=== PATIENT | female | born 1975 | race Two or more races ===

== ENCOUNTER 2020-12-04 14:29 | Inpatient (IN) | payer OTHER ==
[~2020-12-04] VITALS: Ht 160 cm; Wt 103.0 kg
[2020-12-04] MEDS ORDERED: IRON236 MG (14:56)
[2020-12-04] MEDS ORDERED: ESCITALOPRA5 MG/5 ML (14:57)
[2020-12-04] MEDS ORDERED: CARDIZEM30 MG (14:57)
== END 2020-12-07 16:48 | disposition home or self-care (01) | DRG 812 ==
LOC: ER 14:29 → SEC-K 12-05 22:40 → OB/GYN 12-06 15:17
PROVIDERS: ADMIT Obstetrics & Gynecology; ATTEND Obstetrics & Gynecology
PROC: 30233N1 Transfusion of Nonautologous Red Blood Cells into Peripheral Vein, Percutaneous Approach (ICD-10-PCS; principal; 2020-12-05)
DX: D64.9 Anemia, unspecified (principal); N93.9 Abnormal uterine and vaginal bleeding, unspecified

== ENCOUNTER 2020-12-08 11:17 | Emergency (ER) | payer OTHER ==
[~2020-12-08] VITALS: Ht 160 cm; Wt 103.0 kg
[~2020-12-08 11:17] MED LIST: CARDIZEM30 MG; ESCITALOPRA5 MG/5 ML; IRON236 MG
== END 2020-12-08 15:57 | disposition home or self-care (01) ==
LOC: ER 11:17
DX: R14.0 Abdominal distension (gaseous) (principal); Z03.818 Encounter for observation for suspected exposure to other biological agents ruled out

== ENCOUNTER 2021-07-13 09:00 | Inpatient (IN) | payer OTHER ==
[~2021-07-13] VITALS: Ht 160 cm; Wt 104.3 kg
[2021-07-13] MEDS ORDERED: ESCITALOPRAM OX20 MG PO (13:52)
[2021-07-15] MEDS ORDERED: MEGESTROL ACETA40 MG (11:06)
[2021-07-15] MEDS ORDERED: OLANZAPINE2.5 MG (11:06)
[2021-07-15] MEDS ORDERED: MAXIMUM D3325 MCG (11:06)
[2021-07-15] MEDS ORDERED: BUDESONIDE-FO10.2 GM (11:06)
== END 2021-07-18 11:39 | disposition home or self-care (01) | DRG 743 ==
LOC: O/R 07-15 07:03 → OB/GYN 07-15 07:03 → SURH 07-15 09:00 → OB/GYN 07-15 17:45
PROVIDERS: ADMIT Obstetrics & Gynecology; ATTEND Obstetrics & Gynecology
PROC: 0UT70ZZ Resection of Bilateral Fallopian Tubes, Open Approach (ICD-10-PCS; 2021-07-15)
PROC: 0UB00ZZ Excision of Right Ovary, Open Approach (ICD-10-PCS; 2021-07-15)
PROC: 0UT90ZZ Resection of Uterus, Open Approach (ICD-10-PCS; principal; 2021-07-15 09:30)
DX: N80.2 Endometriosis of fallopian tube (principal); N80.1 Endometriosis of ovary; N72 Inflammatory disease of cervix uteri; D25.1 Intramural leiomyoma of uterus; D25.2 Subserosal leiomyoma of uterus; Z20.822 Contact with and (suspected) exposure to COVID-19

== ENCOUNTER 2021-07-15 06:38 | Outpatient (CLI) | payer OTHER ==
[~2021-07-15 06:38] MED LIST changes: +ESCITALOPRAM OX20 MG PO
[2021-07-15] MEDS ORDERED: BUDESONIDE-FO10.2 GM (11:06)
[2021-07-15] MEDS ORDERED: OLANZAPINE2.5 MG (11:06)
[2021-07-15] MEDS ORDERED: MEGESTROL ACETA40 MG (11:06)
[2021-07-15] MEDS ORDERED: MAXIMUM D3325 MCG (11:06)
== END 2021-07-15 06:54 | disposition home or self-care (01) ==
LOC: LAB 06:38
PROVIDERS: ATTEND Internal Medicine
DX: D64.9 Anemia, unspecified (principal)